=== PATIENT | female | born 1985 | race Two or more races ===

== ENCOUNTER 2018-09-27 22:23 | Emergency (ER) | payer SELFPAY ==
[2018-09-27 22:34] VITALS: BP 143/88
--- NOTE | 2018-09-27 23:16 | ER Document Report ---
ED Medical Screen (RME) - General Chief Complaint: Vaginal Bleeding Stated Complaint: VAGINAL BLEEDING Time Seen by Provider: 09/27/18 23:14 Notes: Patient is a 33-year-old female who presents to the emergency department with a chief complaint of heavy menstrual cycle and bleeding. She her menstrual cycle started on Tuesday. She soaked through 2 pads and 2 tampons in the past hour. She is also passing some clots. She does complain of some abdominal cramping and some sweats. She has history of a tubal ligation 3 years ago. No other past medical history. TRAVEL OUTSIDE OF THE [place] IN LAST 30 DAYS: No Physical Exam - Vital signs Vitals: Temp Pulse Resp BP 98.2 F 93 16 143/88 H 09/27/18 22:34 09/27/18 22:34 09/27/18 22:34 09/27/18 22:34 - Abdominal Inspection: Normal Course - Vital Signs Vital signs: Temp Pulse Resp BP Pulse Ox 98.2 F 93 16 143/88 H 09/27/18 22:34 09/27/18 22:34 09/27/18 22:34 09/27/18 22:34
--- NOTE | 2018-09-28 00:15 | RADIOLOGY REPORT (SQ) ---
US PELVIS HISTORY: Pelvic pain. COMPARISON: None. TECHNIQUE: Grayscale, color Doppler, and spectral Doppler ultrasound images of the pelvis were obtained. FINDINGS: The uterus is anteverted and measures 8.1 x 4.8 x 3.8 cm. The endometrium is 5 mm in thickness. The cervix is closed and measures 3.3 cm in length. The right ovary measures 3.3 x 2.3 x 2.2 cm, and the left ovary measures 2.3 x 2.2 x 1.8 cm. Normal color Doppler blood flow is seen in both ovaries. IMPRESSION: No acute pelvic findings.
[2018-09-28 00:26] LABS: APPEARANCE,URINE SLIGHTLY-CLOUDY; BILIRUBIN,URINE NEGATIVE (NEGATIVE); COLOR,URINE YELLOW; GLUCOSE, URINE NEGATIVE (NEGATIVE); KETONES,URINE NEGATIVE (NEGATIVE); LEUKOCYTE ESTERASE,URINE NEGATIVE (NEGATIVE); NITRITE,URINE NEGATIVE (NEGATIVE); PROTEIN,URINE NEGATIVE (NEGATIVE); URINE SPECIFIC GRAVITY 1.016; UROBILINOGEN,URINE NEGATIVE mg/dL (<2.0)
[2018-09-28 03:31] LABS: ABSOLUTE EOSINOPHILS # (AUTO) 0.1 10^3/uL (0.0-0.6); ABSOLUTE MONOCYTES (AUTO) 0.5 10^3/uL (0.1-1.4); ABSOLUTE NEUT (AUTO) 4.6 10^3/uL (1.7-8.2); BASOPHILS % (AUTO) 0.4 % (0-2); EOSINOPHILS % (AUTO) 1.4 % (0-6); HEMATOCRIT 37.6 % (36.0-47.0); HEMOGLOBIN 13.4 g/dL (12.0-15.5); LYMPHOCYTES % (AUTO) 36.5 % (13-45); MEAN CORPUSCULAR HEMOGLOBIN 30.2 pg (27.0-33.4); MEAN CORPUSCULAR HGB CONC 35.6 g/dL (32.0-36.0); MEAN CORPUSCULAR VOLUME 85 fl (80-97); MONOCYTES % (AUTO) 6.1 % (3-13); PLATELET COUNT 254 10^3/uL (150-450); RED BLOOD COUNT 4.44 10^6/uL (3.72-5.28); RED CELL DISTRIBUTION WIDTH 12.9 % (11.5-14.0); SEGMENTED NEUTROPHILS % (AUTO) 55.6 % (42-78); TOTAL CELLS COUNTED % (AUTO) 100 %; WHITE BLOOD COUNT 8.3 10^3/uL (4.0-10.5)
== END 2018-09-28 04:13 | disposition left against medical advice (07) ==
LOC: ER 22:23
DX: R10.9 Unspecified abdominal pain (principal); R61 Generalized hyperhidrosis; Z98.51 Tubal ligation status; Z53.20 Procedure and treatment not carried out because of patient's decision for unspecified reasons
CPT/HCPCS: 36415; 76830; 81001; 81025; 85025; 93976; 99281